=== PATIENT | female | born 1965 | race African-American/Black ===

== ENCOUNTER → 2017-05-23 | Day surgery (SDC) | payer OTHER ==
[~2017-05-23] MED LIST: FERROUS SULFAT325 MG PO; LEVOXYL100 MC1 PO; ZESTORETIC 20-1 EAC2
--- NOTE | ~2017-05-23 | OR ---
Unit #: [id number] #: [id number] Patient: RACHEL LIU [id number] [address] [place], [place] [address] [id number] O MR#: [id number] NAME: RACHEL LIU ROOM: Date of Procedure: 05/23/2017 Admission Date: 05/23/2017 Surgeon: Mina Lew M.D. : 1965 Attending Physician: Mina Lew M.D. Referring Physician: Mina Lew M.D. Primary Care Physician: Eligio Morales Aprn OPERATIVE REPORT PROCEDURE PERFORMED Colonoscopy to cecum. INDICATIONS FOR PROCEDURE Average risk for colorectal cancer, here for screening colonoscopy. MEDICATIONS Monitored anesthesia. POSTOPERATIVE FINDINGS 1. Colonoscopy completed to cecum. Prep was poor despite extensive lavaging. Some areas were not visualized well. 2. No polyps, masses, or colitis. PLAN Repeat colonoscopy in 5 years given the poor prep. DESCRIPTION OF PROCEDURE The patient was explained of the procedure, risks, and benefits along with the risks and benefits of anesthesia. She was brought to the endoscopy room. Propofol anesthesia was given. Rectal exam was done, which was normal. Colonoscope was lubricated, passed up the rectum, advanced under direct vision all the way to the cecum. Cecum was identified by ileocecal valve and appendiceal orifice. I then started to pull the scope out carefully looking. No polyps, masses, or colitis was seen. Some areas were not well visualized. I retroflexed in the rectum, internal hemorrhoids noted. Gently, the scope was pulled out. She tolerated it well. No major complications seen. Dictated by... Alison Mustafa/deepak TD: 05/23/2017 16:06 JOB #: [id number] Unit #: [id number] #: [id number] Patient: RACHEL LIU OPERATIVE REPORT Page 1 of 1 X Mina Lew MD PROCEDURE OPERATIVE NOTE
== END | disposition home or self-care (01) ==
LOC: COPS 11:17
PROVIDERS: Internal Medicine
PROC: 0DJD8ZZ Inspection of Lower Intestinal Tract, Via Natural or Artificial Opening Endoscopic (ICD-10-PCS; principal; 2017-05-23 14:00)
DX: Z12.11 Encounter for screening for malignant neoplasm of colon (principal); K64.8 Other hemorrhoids; I12.9 Hypertensive chronic kidney disease with stage 1 through stage 4 chronic kidney disease, or unspecified chronic kidney disease; F17.200 Nicotine dependence, unspecified, uncomplicated; Z79.899 Other long term (current) drug therapy; Z98.51 Tubal ligation status
CPT/HCPCS: J2250